=== PATIENT | female | born 1975 | race African-American/Black ===

== ENCOUNTER 2016-05-22 06:39 | Inpatient (IN) | payer MEDICAID ==
[~2016-05-22] VITALS: Ht 172.7 cm; Wt 76.3 kg
[2016-05-22] MEDS ORDERED: ONDANSETRON HCL 4MG/2ML VIAL IV STA (07:32)
[2016-05-22] MEDS ORDERED: SODIUM CHLORIDE 0.9% 500 ML IV ONE (07:32)
[2016-05-22] MEDS ORDERED: MORPHINE SULFATE 4 MG/ML CPJ (NOT FOR IM USE) IV STA (07:32)
[2016-05-22 07:56] LABS: BASOPHILS % 0.6 % (0.0-2.0); DIFFERENTIAL COMMENT 0; EOSINOPHILS % 0.1 % (0.0-5.0); HEMATOCRIT. 38.1 % (36.0-48.0); LYMPHOCYTES % 16.1 % (20.0-50.0); MEAN CORPUSCULAR HEMOGLOBIN 35.3 pg (28.0-32.0); MEAN CORPUSCULAR VOLUME 103.7 fL (81.0-99.0); MEAN PLATELET VOLUME 7.6 fl (7.4-10.4); MONOCYTES % 4.7 % (2.0-8.0); NEUTROPHILS % 78.5 % (40.0-76.0); PLATELET 261 x1000/uL (130-400); RED BLOOD CELL COUNT 3.68 mill/uL (4.2-5.4); RED CELL DISTRIBUTION WIDTH 13.7 % (11.6-14.6); WHITE BLOOD COUNT 8.2 x1000/uL (4.5-11.0)
[2016-05-22 08:05] LABS: PARTIAL THROMBOPLASTIN TIME 26.4 sec (24.0-34.0); PROTHROMBIN TIME 10.8 sec
[2016-05-22 08:07] LABS: ANION GAP 15; CALCIUM 8.9 mg/dL (8.5-10.1); CARBON DIOXIDE 26 mEq/L (21-32); CHLORIDE 102 mEq/L (98-107); INDEX HEMOLYSI 1 (1-3); INDEX ICTERIC 1 (1-4); INDEX LIPEMIC 1 (1-3); LIPASE 99 IU/L (73-393); UREA NITROGEN BLOOD 7 mg/dL (7-21)
[2016-05-22 08:11] LABS: GLUCOSE URINE NEGATIVE (NEGATIVE); KETONES URINE 1+ (NEGATIVE); LEUKOCYTE ESTERASE URINE NEGATIVE (NEGATIVE); NITRITE URINE NEGATIVE (NEGATIVE); OCCULT BLOOD URINE 1+ (NEGATIVE); PROTEIN URINE 2+ (NEGATIVE); SPECIFIC GRAVITY URINE 1.041 (1.005-1.030)
[2016-05-22 08:13] LABS: ALANINE AMINOTRANSFERASE 51 IU/L (13-61); TROPONIN I < 0.02 ng/mL (0.00-0.04); eGFR > 60 mL/min (>60)
[2016-05-22 08:14] LABS: CLARITY URINE HAZY (CLEAR); COLOR URINE AMBER (YELLOW)
[2016-05-22 08:25] LABS: *AMPHETAMINES SCREEN URINE NEGATIVE (NEGATIVE); *BARBITURATES SCREEN URINE NEGATIVE (NEGATIVE); *BENZODIAZEPINES SCREEN URINE NEGATIVE (NEGATIVE); *COCAINE SCREEN URINE NEGATIVE (NEGATIVE); CANNABINOID URINE SCREEN NEGATIVE (NEGATIVE); ECSTASY MDMA SCREEN URINE NEGATIVE (NEGATIVE); METHADONE URINE SCREEN NEGATIVE (NEGATIVE); OPIATES URINE SCREEN NEGATIVE (NEGATIVE); PHENCYCLIDINE URINE SCREEN NEGATIVE (NEGATIVE)
[2016-05-22 08:33] LABS: HCG SCREEN NEGATIVE
[2016-05-22 09:04] LABS: WBC URINE NONE SEEN /hpf (0-2)
[2016-05-22 09:05] LABS: BACTERIA URINE NONE SEEN; MUCUS URINE 1+ /lpf (< = 2+); SQUAMOUS EPITHELIAL CELL URINE 1+ /lpf (RARE/1+)
[2016-05-22] MEDS ORDERED: ASPIRIN 325MG TABLET PO ONE (09:15)
[2016-05-22] MEDS ORDERED: MORPHINE SULFATE 4 MG/ML CPJ (NOT FOR IM USE) IV ONE (09:45)
[2016-05-22] MEDS ORDERED: ONDANSETRON HCL 4MG/2ML VIAL IV ONE (09:45)
[2016-05-22] MEDS ORDERED: IOHEXOL-350 100 ML BOTTLE ONE (12:18)
[2016-05-22] MEDS ORDERED: SODIUM CHLORIDE 0.9% 10ML VIAL ONE (12:18)
[2016-05-22] MEDS ORDERED: SODIUM CHLORIDE 0.9% 1,000 ML IV ONE (13:23)
[2016-05-22] MEDS ORDERED: MECLIZINE 25MG TABLET PO ONE (13:30)
[2016-05-22] MEDS ORDERED: POTASSIUM CHLORIDE 20MEQ TABLET SR PO NR (15:45)
[2016-05-22 16:09] LABS: INDEX HEMOLYSI 1 (1-3); MAGNESIUM 1.7 mg/dL (1.8-2.4); TROPONIN I < 0.02 ng/mL (0.00-0.04)
[2016-05-22] MEDS ORDERED: IBUPROFEN 800MG TABLET PO PRN ×2 (17:45→20:15)
[2016-05-22 20:00] VITALS: BP 131/77
[2016-05-22] MEDS ORDERED: HYDROCODONE/ACETAMINOPHEN 5/325MG TABLET PO PRN (20:15)
[2016-05-22] MEDS: LOSARTAN POTASSIUM 25 MG TABLET PO SCH (20:16)
[2016-05-22] MEDS: AMLODIPINE 5MG TABLET PO SCH (20:16)
[2016-05-22] MEDS ORDERED: TEMAZEPAM 15MG CAPSULE PO PRN (22:15)
[2016-05-22 23:41] VITALS: BP 123/68
[2016-05-23 04:15] VITALS: BP 112/71
[2016-05-23 06:09] LABS: CHLORIDE 101 mEq/L (98-107); INDEX HEMOLYSI 1 (1-3); INDEX ICTERIC 2 (1-4); INDEX LIPEMIC 1 (1-3)
[2016-05-23 06:20] LABS: BASOPHILS % 0.4 % (0.0-2.0); DIFFERENTIAL COMMENT 0; EOSINOPHILS % 1.1 % (0.0-5.0); HEMATOCRIT. 34.2 % (36.0-48.0); HEMOGLOBIN. 11.6 g/dL (12.0-16.0); LYMPHOCYTES % 28.7 % (20.0-50.0); MEAN CORPUSCULAR HEMOGLOBIN 35.3 pg (28.0-32.0); MEAN CORPUSCULAR HGB CONC 33.8 g/dL (31.0-37.0); MEAN CORPUSCULAR VOLUME 104.2 fL (81.0-99.0); MEAN PLATELET VOLUME 8.6 fl (7.4-10.4); MONOCYTES % 6.6 % (2.0-8.0); NEUTROPHILS % 63.2 % (40.0-76.0); PLATELET 227 x1000/uL (130-400); RED BLOOD CELL COUNT 3.28 mill/uL (4.2-5.4); WHITE BLOOD COUNT 7.2 x1000/uL (4.5-11.0)
[2016-05-23 06:27] LABS: ANION GAP 12; CALCIUM 8.3 mg/dL (8.5-10.1); CARBON DIOXIDE 29 mEq/L (21-32); HDL CHOLESTEROL 105 mg/dL (40-59); LDL CHOLESTEROL 57 mg/dL (5-100); MAGNESIUM 1.9 mg/dL (1.8-2.4); T4 FREE 0.92 ng/dL (0.76-1.46); TRIGLYCERIDE 80 mg/dL (0-150); UREA NITROGEN BLOOD 6 mg/dL (7-21); eGFR > 60 mL/min (>60)
[2016-05-23 08:00] VITALS: BP 152/99
[2016-05-23] MEDS: LOSARTAN POTASSIUM 25 MG TABLET PO SCH (08:23)
[2016-05-23] MEDS: AMLODIPINE 5MG TABLET PO SCH (08:24)
[2016-05-23] MEDS ORDERED: ENOXAPARIN 40MG/0.4ML SYR SUBCUT SCH (09:00)
[2016-05-23 11:00] VITALS: BP 133/97
== END 2016-05-23 11:15 | disposition home or self-care (01) | DRG 203 ==
LOC: ER 07:44 → 7WST 18:29
PROVIDERS: ADMIT Internal Medicine; ATTEND Internal Medicine
DX: M94.0 Chondrocostal junction syndrome [Tietze] (principal); M86.9 Osteomyelitis, unspecified; I10 Essential (primary) hypertension; F32.9 Major depressive disorder, single episode, unspecified; R07.89 Other chest pain; F17.210 Nicotine dependence, cigarettes, uncomplicated; E80.6 Other disorders of bilirubin metabolism; Z71.6 Tobacco abuse counseling; Z82.49 Family history of ischemic heart disease and other diseases of the circulatory system; R51 Headache
CPT/HCPCS: 36415; 70450; 70496; 71010; 80048; 80053; 80061; 80305; 81001; 83036; 83690; 83735; 84439; 84443; 84484; 84703; 85025; 85610; 85730; 93005; 96361; 96374; 96375; 96376; 99285; 99406; A4216; J1650; J2270; J2405; J7030; J7040; J8597; Q9967

== ENCOUNTER 2016-11-27 02:06 | Emergency (ER) | payer MEDICAID ==
[~2016-11-27] VITALS: Ht 175.3 cm; Wt 86.0 kg
[2016-11-27] MEDS ORDERED: SODIUM CHLORIDE 0.9% 1,000 ML IV ONE (02:30)
[2016-11-27] MEDS ORDERED: KETOROLAC 30MG/ML VIAL IV ONE (02:30)
[2016-11-27] MEDS ORDERED: ASPIRIN 81MG TABLET PO ONE (02:30)
[2016-11-27] MEDS ORDERED: ONDANSETRON HCL 4MG/2ML VIAL IV ONE (02:30)
[2016-11-27] MEDS ORDERED: NITROGLYCERIN 0.4MG TABLET SL SL PRN (02:30)
[2016-11-27 02:40] LABS: BASOPHILS % 0.9 % (0.0-2.0); EOSINOPHILS % 1.5 % (0.0-5.0); HEMATOCRIT. 35.6 % (36.0-48.0); HEMOGLOBIN. 12.4 g/dL (12.0-16.0); LYMPHOCYTES % 24.2 % (20.0-50.0); MEAN CORPUSCULAR HEMOGLOBIN 35.6 pg (28.0-32.0); MEAN CORPUSCULAR VOLUME 102.1 fL (81.0-99.0); MEAN PLATELET VOLUME 7.3 fl (7.4-10.4); MONOCYTES % 6.4 % (2.0-8.0); PLATELET 356 x1000/uL (130-400); RED BLOOD CELL COUNT 3.49 mill/uL (4.2-5.4); RED CELL DISTRIBUTION WIDTH 14.4 % (11.6-14.6)
[2016-11-27 02:49] LABS: PROTHROMBIN TIME 10.7 sec (9.4-11.6)
[2016-11-27 02:58] LABS: CARBON DIOXIDE 29 mEq/L (21-32); TROPONIN I < 0.02 ng/mL (0.00-0.04)
[2016-11-27 02:59] LABS: CHLORIDE 105 mEq/L (98-107)
[2016-11-27 05:15] VITALS: BP 112/70
== END 2016-11-27 06:46 | disposition home or self-care (01) ==
LOC: ER 02:06
DX: R07.9 Chest pain, unspecified (principal); F32.9 Major depressive disorder, single episode, unspecified; I10 Essential (primary) hypertension
CPT/HCPCS: 36415; 71010; 80053; 84484; 85025; 85610; 93005; 96361; 96374; 96375; 99285; J1885; J2405; J7030; Z7610

== ENCOUNTER 2017-03-23 04:42 | Emergency (ER) | payer SELFPAY ==
[~2017-03-23] VITALS: Ht 165.1 cm; Wt 90.0 kg
[2017-03-23] MEDS ORDERED: NITROGLYCERIN OINT 1GM/INCH UDPKT TD ONE (05:15)
[2017-03-23] MEDS ORDERED: ASPIRIN 81MG TABLET PO ONE (05:15)
[2017-03-23 05:29] LABS: BASOPHILS % 0.6 % (0.0-2.0); EOSINOPHILS % 0.3 % (0.0-5.0); HEMATOCRIT. 36.8 % (36.0-48.0); HEMOGLOBIN. 12.4 g/dL (12.0-16.0); LYMPHOCYTES % 14.9 % (20.0-50.0); MEAN CORPUSCULAR HEMOGLOBIN 33.7 pg (28.0-32.0); MEAN CORPUSCULAR VOLUME 99.7 fL (81.0-99.0); MEAN PLATELET VOLUME 7.7 fl (7.4-10.4); MONOCYTES % 6.2 % (2.0-8.0); PLATELET 383 x1000/uL (130-400); RED CELL DISTRIBUTION WIDTH 17.9 % (11.6-14.6)
[2017-03-23 05:47] LABS: CARBON DIOXIDE 29 mEq/L (21-32); CHLORIDE 102 mEq/L (98-107); ETHANOL BLOOD < 10 mg/dL; TROPONIN I < 0.02 ng/mL (0.00-0.04)
[2017-03-23] MEDS ORDERED: MORPHINE SULFATE 4 MG/ML CPJ (NOT FOR IM USE) IV STA (06:17)
[2017-03-23] MEDS ORDERED: ONDANSETRON HCL 4MG/2ML VIAL IV STA (06:17)
[2017-03-23] MEDS ORDERED: MORPHINE SULFATE 4 MG/ML CPJ (NOT FOR IM USE) IV ONE (09:00)
[2017-03-23] MEDS ORDERED: METOCLOPRAMIDE HCL 10MG/2ML VIAL IV ONE (09:00)
[2017-03-23 11:02] LABS: HCG SCREEN NEGATIVE
[2017-03-23] MEDS ORDERED: IBUPROFEN 400MG TABLET PO ONE (12:15)
[2017-03-23 12:28] VITALS: BP 136/80
== END 2017-03-23 12:32 | disposition home or self-care (01) ==
LOC: ER 04:42
DX: R05 Cough (principal); R19.7 Diarrhea, unspecified; R07.9 Chest pain, unspecified; I10 Essential (primary) hypertension; F17.200 Nicotine dependence, unspecified, uncomplicated; R11.2 Nausea with vomiting, unspecified
CPT/HCPCS: 36415; 70450; 71010; 80053; 81025; 83690; 83880; 84484; 84703; 85025; 93005; 96374; 96375; 96376; 99285; G0482; J2270; J2405; J2765; Z7610